=== PATIENT | male | born 1950 | race Caucasian/White ===

== ENCOUNTER 2025-02-07 12:10 | Emergency (ER) | payer OTHER, SELFPAY ==
[2025-02-07 12:13] VITALS: BP 189/102
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
== END 2025-02-07 14:05 | disposition home or self-care (01) ==
LOC: EMR 12:10
PROVIDERS: EMERGENCY PHYSICIAN Emergency Medicine; FAMILY PHYSICIAN Internal Medicine
DX: M25.461 Effusion, right knee (principal); M25.561 Pain in right knee; V28.49XA Other motorcycle driver injured in noncollision transport accident in traffic accident, initial encounter
CPT/HCPCS: 29505; 99283; 73564